=== PATIENT | female | born 1995 | race Hispanic/Latino ===

== ENCOUNTER 2018-02-09 10:52 | Emergency (ER) | payer OTHER ==
[2018-02-09] MEDS ORDERED: Sodium Chloride 0.9% 1,000 ML IV STA (11:54)
--- NOTE | 2018-02-09 11:59 | ED PDOC ---
HPI: Abdomen Time Seen by Provider: 02/09/18 11:11 Chief Complaint (Nursing): Abdominal Pain Chief Complaint (Provider): Abdominal pain History Per: Patient History/Exam Limitations: no limitations Additional Complaint(s): Pt reports sharp abdominal pain X 1 day, associated with nausea and dysuria. Denies fever, vomiting, constipation, diarrhea, hematuria. Past Medical History Reviewed: Nursing Documentation, Vital Signs Vital Signs: Last Vital Signs Temp 98 F 02/09/18 18:30 Pulse 74 02/09/18 18:30 Resp 20 02/09/18 18:30 BP 110/70 02/09/18 18:30 Pulse Ox 98 02/09/18 18:30 - Medical History PMH: No Chronic Diseases - Surgical History Surgical History: No Surg Hx - Family History Family History: States: Diabetes - Living Arrangements Living Arrangements: With Family - Social History Current smoker - smoking cessation education provided: No Alcohol: None - Home Medications Home Medications: Ambulatory Orders Medication Instructions Recorded Acyclovir 200 mg PO 5XD #50 cap 08/17/14 Naproxen [Naprosyn] 500 mg PO Q12H #20 tab 12/01/14 Nitrofurantoin Macrocrystals 100 mg PO BID #14 cap 02/09/18 [Macrobid] Phenazopyridine [Pyridium] 200 mg PO TID PRN #5 tab 02/09/18 - Allergies Allergies/Adverse Reactions: Allergies Allergy/AdvReac Type Severity Reaction Status Date / Time No Known Allergies Allergy Verified 11/17/15 19:15 Review of Systems Constitutional: Negative for: Fever, Chills Cardiovascular: Negative for: Chest Pain, Palpitations Respiratory: Negative for: Cough, Shortness of Breath Gastrointestinal: Positive for: Nausea, Abdominal Pain. Negative for: Vomiting , Diarrhea Genitourinary Female: Positive for: Dysuria. Negative for: Hematuria, Vaginal Discharge, Vaginal Bleeding Skin: Negative for: Rash, Lesions Neurological: Negative for: Headache Physical Exam - Reviewed Nursing Documentation Reviewed: Yes Vital Signs Reviewed: Yes - Physical Exam Appears: Positive for: Uncomfortable Head Exam: Positive for: ATRAUMATIC, NORMAL INSPECTION Skin: Positive for: Normal Color, Warm, Dry Eye Exam: Positive for: Normal appearance, EOMI, PERRL Cardiovascular/Chest: Positive for: Regular Rate, Rhythm Respiratory: Positive for: Normal Breath Sounds. Negative for: Rales, Rhonchi, Wheezing Gastrointestinal/Abdominal: Positive for: Bowel Sounds, Soft, Tenderness (RUQ/ RLQ). Negative for: Distended, Guarding, Rebound Back: Positive for: R CVA Tenderness. Negative for: L CVA Tenderness Extremity: Positive for: Normal ROM Neurologic/Psych: Positive for: Alert, Oriented - Laboratory Results Result Diagrams: 02/09/18 12:20 02/09/18 12:20 - ECG O2 Sat by Pulse Oximetry: 99 Medical Decision Making Medical Decision Makin yo female with R sided abd pain, nausea and dysuria. - labs - abdominal ultrasound - IVF - Morphine - Zofran Accession No. : [id number] Patient Name / ID : LIANNA CHRISTENSEN / [id number] Exam Date : 02/09/2018 13:16:31 ( Addendum_Approved ) Study Comment : Sex / Age : F / 22Y Creator : Lola Suarez MD Dictator : Lola Suarez MD Ecology Professor : Book Packer : Lola Suarez MD Approver2 : Report Date : 02/09/2018 13:49:51 My Comment : ADDENDUM: This addendum is in regards to evaluation of the right lower quadrant. There are gas filled peristaltic bowel loop. The appendix is not visualized. No free fluid in the right lower quadrant. Impression: The appendix is not visualized. Please note nonvisualization of the appendix does not exclude acute appendicitis for which clinical follow-up is advised. CT scan may be performed if clinically indicated. [ Addendum Report Added by Lola Suarez MD at 02/09/2018 16:06:34 ] Date of service: 02/09/2018 HISTORY: RUQ/RLQ pain COMPARISON: None. TECHNIQUE: Grayscale imaging was performed. FINDINGS: LIVER: Measures 13.2 cm. Normal echogenicity of the liver parenchyma. No mass. No intrahepatic bile duct dilatation. GALLBLADDER: There are no gallstones, wall thickening or pericholecystic fluid. The sonographic Reynolds's sign is negative. COMMON BILE DUCT: Measures 4.3 mm. No stones. No dilatation. PANCREAS: Normal 5. No mass. No ductal dilatation. RIGHT KIDNEY: Measures 10.2cm. Normal echogenicity. No calculus, mass, or hydronephrosis. LEFT KIDNEY: Measures 11.0cm. Normal echogenicity. No calculus, mass, or hydronephrosis. SPLEEN: Normal in size and contour. No mass. AORTA: No aneurysmal dilatation. IVC: Unremarkable. OTHER FINDINGS: None. IMPRESSION: Normal examination. Accession No. : [id number] Patient Name / ID : LIANNA CHRISTENSEN / [id number] Exam Date : 02/09/2018 17:35:22 ( Approved ) Study Comment : Sex / Age : F / 22Y Creator : Florencio Araiza MD Dictator : Florencio Araiza MD Ecology Professor : Book Packer : Florencio Araiza MD Approver2 : Report Date : 02/09/2018 18:03:14 My Comment : Date of service: 02/09/2018 PROCEDURE: CT Abdomen and Pelvis with contrast HISTORY: RLQ pain COMPARISON: None. TECHNIQUE: Contrast dose: 90 cc Omnipaque 300. Radiation dose: Total exam DLP = 334.00 mGy-cm. This CT exam was performed using one or more of the following dose reduction techniques: Automated exposure control, adjustment of the mA and/or kV according to patient size, and/or use of iterative reconstruction technique. FINDINGS: LOWER THORAX: Unremarkable. LIVER: Unremarkable. No gross lesion or ductal dilatation. GALLBLADDER AND BILE DUCTS: Unremarkable. PANCREAS: Unremarkable. No gross lesion or ductal dilatation. SPLEEN: Unremarkable. ADRENALS: Unremarkable. No mass. KIDNEYS AND URETERS: Unremarkable. No hydronephrosis. No solid mass. VASCULATURE: Unremarkable. No aortic aneurysm. BOWEL: Constipation without fecal impaction or obstruction. APPENDIX: Normal appendix. PERITONEUM: Small volume of pelvic ascites. No free air. LYMPH NODES: Unremarkable. No enlarged lymph nodes. BLADDER: Bladder wall thickening which may reflect a relatively decompressed state but can may be seen with cystitis. REPRODUCTIVE: Enlarged, fibroid uterus. BONES: No acute fracture. OTHER FINDINGS: None. IMPRESSION: 1. Small volume free fluid in the pelvis. 2. Bladder wall thickening more likely to reflect underfilling than cystitis. 3. A normal appendix is identified deeply situated within the right hemipelvis. Additional benign and/or incidental findings described above. Disposition - Clinical Impression Clinical Impression: UTI (urinary tract infection) - Disposition Referrals: Adan Guzmán MD [Family Provider] - Disposition: Routine/Home Disposition Time: 18:00 Condition: STABLE Additional Instructions: FOLLOW-UP WITH PMD WITHIN 2 DAYS FOR REEVALUATION. Prescriptions: Nitrofurantoin Macrocrystals [Macrobid] 100 mg PO BID #14 cap Phenazopyridine [Pyridium] 200 mg PO TID PRN #5 tab PRN Reason: Bladder Spasm Instructions: Urinary Tract Infections in Adults Forms: [employer] (Pashto), [facility] ED School/Work Excuse
[2018-02-09 12:39] LABS: BASO % 0.3 % (0.0-2.0); EOS # 0.1 K/uL (0.0-0.7); HEMOGLOBIN 11.6 g/dL (12.0-16.0); LYMPH # 1.2 K/uL (1.0-4.3); LYMPH % 18.7 % (20.0-40.0); MEAN CELL VOLUME 85.5 fl (81.0-99.0); MEAN CORPUSCULAR HGB CONC 32.7 g/dL (33.0-37.0); MEAN PLATELET VOLUME 7.7 fl (7.2-11.7); MONO # 0.6 K/uL (0.0-0.8); MONO % 8.7 % (0.0-10.0); NEUT # 4.6 K/uL (1.8-7.0); NEUT % 71.3 % (50.0-75.0); RBC 4.15 Mil/uL (3.80-5.20); RED CELL DISTRIBUTION WIDTH 13.1 % (11.5-14.5); WHITE BLOOD COUNT 6.5 K/uL (4.8-10.8)
[2018-02-09 12:50] LABS: ALB/GLOB RATIO 1.3 (1.0-2.1); ALBUMIN 4.3 g/dL (3.5-5.0); ALT/SGPT 30 U/L (9-52); AST/SGOT 28 U/L (14-36); BLOOD UREA NITROGEN 14 mg/dl (7-17); CALCIUM 9.4 mg/dL (8.4-10.2); GFR AFRICAN-AMERICAN > 60; GFR NON-AFRICAN AMERICAN > 60
--- NOTE | 2018-02-09 13:51 | US ---
Date of service: 02/09/2018 HISTORY: RUQ/RLQ pain COMPARISON: None. TECHNIQUE: Grayscale imaging was performed. FINDINGS: LIVER: Measures 13.2 cm. Normal echogenicity of the liver parenchyma. No mass. No intrahepatic bile duct dilatation. GALLBLADDER: There are no gallstones, wall thickening or pericholecystic fluid. The sonographic Reynolds's sign is negative. COMMON BILE DUCT: Measures 4.3 mm. No stones. No dilatation. PANCREAS: Normal 5. No mass. No ductal dilatation. RIGHT KIDNEY: Measures 10.2cm. Normal echogenicity. No calculus, mass, or hydronephrosis. LEFT KIDNEY: Measures 11.0cm. Normal echogenicity. No calculus, mass, or hydronephrosis. SPLEEN: Normal in size and contour. No mass. AORTA: No aneurysmal dilatation. IVC: Unremarkable. OTHER FINDINGS: None. IMPRESSION: Normal examination.
[2018-02-09] MEDS ORDERED: cefTRIAXone (Rocephin) 1 gm Inj ONE (14:37)
[2018-02-09 14:53] LABS: SQUAMOUS EPITHIAL 6 /hpf (0-5); URINE BACTERIA FEW (<OCC); URINE BILIRUBIN NEGATIVE (NEGATIVE); URINE BLOOD MODERATE (NEGATIVE); URINE CLARITY CLOUDY (Clear); URINE COLOR YELLOW (YELLOW); URINE GLUCOSE (UA) NEG (Normal); URINE LEUKOCYTE ESTERASE LARGE Leu/uL (Negative); URINE PROTEIN 30 mg/dL (NEGATIVE); URINE UROBILINOGEN 0.2-1.0 mg/dL (0.2-1.0)
[2018-02-09] MEDS ORDERED: Iohexol 300 100 ML IJ ONE (17:31)
[2018-02-09] MEDS ORDERED: Sodium Chloride 0.9% 50 ML IV ONE (17:31)
--- NOTE | 2018-02-09 18:04 | CT ---
Date of service: 02/09/2018 PROCEDURE: CT Abdomen and Pelvis with contrast HISTORY: RLQ pain COMPARISON: None. TECHNIQUE: Contrast dose: 90 cc Omnipaque 300. Radiation dose: Total exam DLP = 334.00 mGy-cm. This CT exam was performed using one or more of the following dose reduction techniques: Automated exposure control, adjustment of the mA and/or kV according to patient size, and/or use of iterative reconstruction technique. FINDINGS: LOWER THORAX: Unremarkable. LIVER: Unremarkable. No gross lesion or ductal dilatation. GALLBLADDER AND BILE DUCTS: Unremarkable. PANCREAS: Unremarkable. No gross lesion or ductal dilatation. SPLEEN: Unremarkable. ADRENALS: Unremarkable. No mass. KIDNEYS AND URETERS: Unremarkable. No hydronephrosis. No solid mass. VASCULATURE: Unremarkable. No aortic aneurysm. BOWEL: Constipation without fecal impaction or obstruction. APPENDIX: Normal appendix. PERITONEUM: Small volume of pelvic ascites. No free air. LYMPH NODES: Unremarkable. No enlarged lymph nodes. BLADDER: Bladder wall thickening which may reflect a relatively decompressed state but can may be seen with cystitis. REPRODUCTIVE: Enlarged, fibroid uterus. BONES: No acute fracture. OTHER FINDINGS: None. IMPRESSION: 1. Small volume free fluid in the pelvis. 2. Bladder wall thickening more likely to reflect underfilling than cystitis. 3. A normal appendix is identified deeply situated within the right hemipelvis. Additional benign and/or incidental findings described above.
[2018-02-09 19:28] VITALS: BP 110/70; PULSE 74; RESP 20; TEMP 98
[2018-02-10 13:20] VITALS: O2SAT 99
== END 2018-02-09 18:30 | disposition home or self-care (01) ==
LOC: H.ER 10:52
DX: N39.0 Urinary tract infection, site not specified (principal)
CPT/HCPCS: 74177; 76700; 80053; 81003; 81025; 85025; 87086; 96361; 96365; 96375; 99284; J0696; J2270; J7030; Q9967